=== PATIENT | female | born 1935 | race Caucasian/White ===

== ENCOUNTER 2017-10-12 00:22 | Emergency (ER) | payer MEDICAID ==
[2017-10-12 05:05] VITALS: BP 176/88
== END 2017-10-12 05:05 | disposition home or self-care (01) ==
LOC: ED 00:22
DX: R51 Headache (principal); R10.13 Epigastric pain; I10 Essential (primary) hypertension; Y04.8XXA Assault by other bodily force, initial encounter; Y93.89 Activity, other specified; Y92.89 Other specified places as the place of occurrence of the external cause; Y99.8 Other external cause status
CPT/HCPCS: J2270

== ENCOUNTER 2018-03-30 09:49 | Emergency (ER) | payer MEDICAID ==
[~2018-03-30] VITALS: Ht 147.3 cm; Wt 61.2 kg
[2018-03-30 10:04] VITALS: Ht 147.3 cm; Wt 61.2 kg
[2018-03-30 12:47] VITALS: BP 100/74
== END 2018-03-30 12:48 | disposition home or self-care (01) ==
LOC: ED 09:49
DX: S43.401A Unspecified sprain of right shoulder joint, initial encounter (principal); S80.12XA Contusion of left lower leg, initial encounter; M25.562 Pain in left knee; W01.0XXA Fall on same level from slipping, tripping and stumbling without subsequent striking against object, initial encounter; Y93.89 Activity, other specified; Y92.89 Other specified places as the place of occurrence of the external cause; Y99.8 Other external cause status
CPT/HCPCS: J1885

== ENCOUNTER 2018-08-04 08:54 | Inpatient (IN) | payer MEDICAID ==
[~2018-08-04] VITALS: Ht 154.9 cm; Wt 60.0 kg
[2018-08-04 09:51] LABS: CARBON DIOXIDE 24.2 mmol/L (21-32); CHLORIDE SERUM 106 mmol/L (98-107); CREATININE SERUM 0.7 mg/dL (0.6-1.0); GLUCOSE SERUM 93 mg/dL (74-106); SODIUM SERUM 139 mmol/L (136-145)
[2018-08-04 09:56] LABS: ALBUMIN 3.6 g/dL (3.4-5.0); ALKALINE PHOSPHATASE 87 U/L (46-116); ALT/SGPT 34 U/L (14-59); AST/SGOT 23 U/L (15-37); BILIRUBIN TOTAL 0.2 mg/dL (0.20-1.00); LIPASE 170 IU/L (73-393); TOTAL PROTEIN, SERUM 7.1 g/dL (6.4-8.2)
[2018-08-04 10:20] LABS: UA SPECIFIC GRAVITY 1.015 (1.005-1.035); microscopic required? YES; urine erythrocyte 2+ (NEGATIVE)
[2018-08-04 10:45] LABS: BASOPHIL % 0.7 % (0-2); PLATELET COUNT 298 x10^3mcL (130-400); RED CELL DISTRIBUTION WIDTH 13.8 % (11.5-14.5)
[2018-08-04 11:34] LABS: CHOLESTEROL/HDL RATIO 6.3
[2018-08-04 12:18] VITALS: BP 175/72
[2018-08-04 12:24] VITALS: BP 175/72
[2018-08-04 17:37] VITALS: BP 139/62
[2018-08-04 20:59] VITALS: BP 127/54
[2018-08-05 05:36] VITALS: BP 140/55
[2018-08-05 07:18] LABS: CALCIUM 8.9 mg/dL (8.5-10.1); CARBON DIOXIDE 22.8 mmol/L (21-32); CHLORIDE SERUM 107 mmol/L (98-107); CREATININE SERUM 0.8 mg/dL (0.6-1.0); GLUCOSE SERUM 90 mg/dL (74-106); POTASSIUM SERUM 4.2 mmol/L (3.5-5.1); SODIUM SERUM 138 mmol/L (136-145)
[2018-08-05 07:20] LABS: BASOPHIL % 0.5 % (0-2); PLATELET COUNT 272 x10^3mcL (130-400); RED CELL DISTRIBUTION WIDTH 13.9 % (11.5-14.5)
[2018-08-05 09:23] VITALS: BP 156/46
[2018-08-05 09:36] VITALS: BP 153/60
[2018-08-05 12:58] VITALS: BP 158/67
[2018-08-05 17:29] VITALS: BP 138/58
[2018-08-05 21:29] VITALS: BP 126/63
[2018-08-06 05:24] VITALS: BP 157/58
[2018-08-06 06:45] LABS: BASOPHIL % 0.6 % (0-2); PLATELET COUNT 290 x10^3mcL (130-400); RED CELL DISTRIBUTION WIDTH 13.7 % (11.5-14.5)
[2018-08-06 06:57] LABS: CALCIUM 8.9 mg/dL (8.5-10.1); CARBON DIOXIDE 27.7 mmol/L (21-32); CHLORIDE SERUM 107 mmol/L (98-107); CREATININE SERUM 0.8 mg/dL (0.6-1.0); GLUCOSE SERUM 97 mg/dL (74-106); POTASSIUM SERUM 4.2 mmol/L (3.5-5.1); SODIUM SERUM 142 mmol/L (136-145)
[2018-08-06 09:12] VITALS: BP 150/64
[2018-08-06 14:16] VITALS: BP 199/95
[2018-08-06 16:55] VITALS: BP 132/55
[2018-08-06 22:00] VITALS: BP 146/80
[2018-08-07 06:23] VITALS: BP 125/62
[2018-08-07 09:00] VITALS: BP 122/82
[2018-08-07] MEDS ORDERED: LIPI10 (13:27)
[2018-08-07] MEDS ORDERED: HYDROCHLOROTHIA25 MG PO (13:28)
[2018-08-07] MEDS ORDERED: TOPROL XL25 MG PO (13:28)
[2018-08-07] MEDS ORDERED: NOR5 PO (13:28)
[2018-08-07] MEDS ORDERED: K-VESCENT25 MEQ PO (13:29)
[2018-08-07 13:30] VITALS: BP 122/82
== END 2018-08-07 14:39 | disposition home or self-care (01) | DRG 203 ==
LOC: ED 08:54 → DU 10:39
PROVIDERS: Emergency Medicine; ADMIT General Practice
DX: M94.0 Chondrocostal junction syndrome [Tietze] (principal); E78.00 Pure hypercholesterolemia, unspecified; R73.03 Prediabetes; I10 Essential (primary) hypertension; Z91.14 Patient's other noncompliance with medication regimen
CPT/HCPCS: 83880; 90732; A9500; J0360; J1885; J2405; J2785; J3490; J7030; Q0092

== ENCOUNTER 2018-08-30 16:59 | Emergency (ER) | payer MEDICAID ==
[~2018-08-30] VITALS: Ht 152.4 cm; Wt 59.5 kg
[~2018-08-30 16:59] MED LIST: HYDROCHLOROTHIA25 MG PO; K-VESCENT25 MEQ PO; LIPI10; NOR5 PO; TOPROL XL25 MG PO
[2018-08-30 17:19] VITALS: Ht 152.4 cm; Wt 59.5 kg
[2018-08-30 19:33] VITALS: BP 154/72
== END 2018-08-30 19:33 | disposition home or self-care (01) ==
LOC: ED 16:59
DX: S00.462A Insect bite (nonvenomous) of left ear, initial encounter (principal); S40.861A Insect bite (nonvenomous) of right upper arm, initial encounter; L03.114 Cellulitis of left upper limb; I10 Essential (primary) hypertension; E78.00 Pure hypercholesterolemia, unspecified; W57.XXXA Bitten or stung by nonvenomous insect and other nonvenomous arthropods, initial encounter; Y93.89 Activity, other specified; Y92.89 Other specified places as the place of occurrence of the external cause; Y99.8 Other external cause status
CPT/HCPCS: J1885

== ENCOUNTER 2018-08-31 12:43 | Emergency (ER) | payer MEDICAID ==
[~2018-08-31] VITALS: Ht 152.4 cm; Wt 59.1 kg
[2018-08-31 12:49] VITALS: Ht 152.4 cm; Wt 59.1 kg
[2018-08-31 13:39] VITALS: BP 119/78
== END 2018-08-31 13:39 | disposition home or self-care (01) ==
LOC: ED 12:43
DX: S00.462A Insect bite (nonvenomous) of left ear, initial encounter (principal); B02.9 Zoster without complications; I10 Essential (primary) hypertension; E78.00 Pure hypercholesterolemia, unspecified; W57.XXXA Bitten or stung by nonvenomous insect and other nonvenomous arthropods, initial encounter; Y93.89 Activity, other specified; Y92.89 Other specified places as the place of occurrence of the external cause; Y99.8 Other external cause status
CPT/HCPCS: J2270; Q0162

== ENCOUNTER 2019-07-25 07:51 | Emergency (ER) | payer MEDICAID ==
[~2019-07-25] VITALS: Ht 152.4 cm; Wt 60.8 kg
[2019-07-25 08:17] VITALS: Ht 152.4 cm; Wt 60.8 kg
[2019-07-25 09:54] LABS: UA SPECIFIC GRAVITY 1.015 (1.005-1.035); microscopic required? YES; urine erythrocyte 3+ (NEGATIVE)
[2019-07-25 09:58] LABS: BASOPHIL % 0.1 % (0-2); PLATELET COUNT 276 x10^3mcL (130-400)
[2019-07-25 11:27] LABS: CALCIUM 8.9 mg/dL (8.5-10.1); CARBON DIOXIDE 23.2 mmol/L (21-32); CHLORIDE SERUM 103 mmol/L (98-107); CREATININE SERUM 0.9 mg/dL (0.6-1.0); GLUCOSE SERUM 117 mg/dL (74-106); POTASSIUM SERUM 4.5 mmol/L (3.5-5.1); SODIUM SERUM 140 mmol/L (136-145)
[2019-07-25 11:32] LABS: ALKALINE PHOSPHATASE 110 U/L (46-116); ALT/SGPT 66 U/L (14-59); AST/SGOT 37 U/L (15-37); BILIRUBIN TOTAL 0.19 mg/dL (0.20-1.00); LIPASE 148 IU/L (73-393); TOTAL PROTEIN, SERUM 7.2 g/dL (6.4-8.2)
[2019-07-25 11:39] LABS: ALBUMIN 2.8 g/dL (3.4-5.0)
[2019-07-25 14:24] VITALS: BP 129/54
== END 2019-07-25 14:24 | disposition home or self-care (01) ==
LOC: ED 07:51
PROVIDERS: Student in an Organized Health Care Education/Training Program
DX: N30.90 Cystitis, unspecified without hematuria (principal); K59.00 Constipation, unspecified; I10 Essential (primary) hypertension; E78.00 Pure hypercholesterolemia, unspecified; Z98.890 Other specified postprocedural states
CPT/HCPCS: J0696; J7030; J7060; Q9967